=== PATIENT | female | born 1995 | race Caucasian/White ===

== ENCOUNTER 2016-05-26 01:59 | Inpatient (IN) | payer OTHER ==
[~2016-05-26] VITALS: Ht 165.1 cm; Wt 77.6 kg
[2016-05-26] MEDS ORDERED: LORAZEPAM 2 MG/ML VIAL IM PRN (06:45)
[2016-05-26] MEDS ORDERED: LORAZEPAM 2 MG TAB PO PRN (06:45)
[2016-05-26] MEDS ORDERED: ACETAMINOPHEN 325 MG TAB PO PRN (06:45)
[2016-05-26] MEDS ORDERED: ALU/MAG/SIM 30 ML UDC PO PRN (06:45)
[2016-05-26] MEDS ORDERED: TRAZODONE 50 MG TAB PO PRN (06:45)
[2016-05-26] MEDS ORDERED: DIPHENHYDRAMINE 50 MG/ML VIAL IM PRN (06:45)
[2016-05-26] MEDS ORDERED: DIPHENHYDRAMINE 50 MG CAP PO PRN (06:45)
[2016-05-26] MEDS ORDERED: MAG HYDROX 30 ML UDC PO PRN (06:45)
[2016-05-26] MEDS ORDERED: HALOPERIDOL 5 MG/ML VIAL IM PRN (06:45)
[2016-05-26] MEDS ORDERED: HALOPERIDOL 5 MG TAB PO PRN (06:45)
[2016-05-26 08:39] VITALS: BP_SYST 140; RESP 18; TEMP 98.5
[2016-05-26 08:40] VITALS: Ht 165.1 cm; Wt 77.6 kg
[2016-05-26] MEDS: MULTIVITS/MINERALS (THERAGRAN M) TAB PO SCH (09:00)
[2016-05-26] MEDS: BUPROPION XL 150 MG TAB PO SCH (13:30)
[2016-05-26] MEDS: BUSPIRONE HCL 15 MG TAB PO SCH ×2 (13:30→21:31)
[2016-05-26] MEDS: QUETIAPINE XR 300 MG TAB PO SCH (16:39)
[2016-05-26 19:57] VITALS: BP_SYST 133; RESP 16; TEMP 97.8
[2016-05-27] MEDS: MULTIVITS/MINERALS (THERAGRAN M) TAB PO SCH (09:00)
[2016-05-27] MEDS: BUPROPION XL 150 MG TAB PO SCH (09:09)
[2016-05-27] MEDS: BUSPIRONE HCL 15 MG TAB PO SCH ×2 (09:09→21:59)
[2016-05-27 10:23] VITALS: BP_SYST 128; RESP 16; TEMP 97.6
[2016-05-27] MEDS: QUETIAPINE XR 300 MG TAB PO SCH (17:04)
[2016-05-27 19:57] VITALS: BP_SYST 120; RESP 16; TEMP 97.8
[2016-05-28 08:50] VITALS: BP_SYST 137; RESP 16
[2016-05-28] MEDS: MULTIVITS/MINERALS (THERAGRAN M) TAB PO SCH (09:00)
[2016-05-28] MEDS: BUPROPION XL 150 MG TAB PO SCH (09:15)
[2016-05-28] MEDS: BUSPIRONE HCL 15 MG TAB PO SCH (09:21)
[2016-05-28 11:12] VITALS: BP_SYST 137; RESP 16; TEMP 97.8
== END 2016-05-28 13:34 | disposition home or self-care (01) | DRG 885 ==
LOC: ER 01:59 → EMR 05:54 → PSY 07:15
PROVIDERS: ADMIT Psychiatry & Neurology Psychiatry; ATTEND Psychiatry & Neurology Psychiatry

== ENCOUNTER 2016-06-12 19:06 | Emergency (ER) | payer OTHER ==
[2016-06-12] MEDS ORDERED: ONDANSETRON 4 MG VIAL ONE (21:27)
[2016-06-12] MEDS ORDERED: PANTOPRAZOLE 40 MG VIAL IV ONE (21:28)
[2016-06-12] MEDS ORDERED: LIDOCAINE 2% VISC 15 ML UDC ONE (21:28)
[2016-06-12] MEDS ORDERED: SODIUM CHLORIDE 0.9% 0 ML ONE (21:28)
[2016-06-12] MEDS ORDERED: ALU/MAG/SIM 30 ML UDC ONE (21:28)
[2016-06-12] MEDS ORDERED: FAMOTIDINE 20 MG TAB ONE (21:37)
[2016-06-12] MEDS ORDERED: ONDANSETRON ODT 4 MG TAB ONE (21:38)
== END 2016-06-12 21:49 | disposition home or self-care (01) ==
LOC: ER 19:06
DX: K25.3 Acute gastric ulcer without hemorrhage or perforation (principal); B96.81 Helicobacter pylori [H. pylori] as the cause of diseases classified elsewhere; I10 Essential (primary) hypertension; F32.9 Major depressive disorder, single episode, unspecified
CPT/HCPCS: 36415; 76705; 80053; 81001; 83690; 84703; 85025; 86677